=== PATIENT | male | born 1955 | race American Indian/Alaskan Native ===

== ENCOUNTER 2020-09-22 11:51 | Inpatient (IN) | payer OTHER ==
[2020-09-22] MEDS ORDERED: ASPIRIN 81 MG TAB CHEW PO ONE (12:31)
--- NOTE | 2020-09-22 12:35 | Cat Scan Report ---
CT HEAD WITHOUT CONTRAST INDICATION / CLINICAL INFORMATION: MAIN. TECHNIQUE: All CT scans at this location are performed using CT dose reduction for ALARA by means of automated exposure control. COMPARISON: None available. FINDINGS: BRAIN PARENCHYMA: Subtle area of hypoattenuation within the right bhandari radiata/basal ganglia, may r eflect recent infarct. No acute intracranial hemorrhage, mass effect, or midline shift. VENTRICULAR SYSTEM/EXTRA-AXIAL SPACES: Ventricles are normal for age. No extra-axial fluid collection . ORBITS: Normal as visualized. SKELETAL SYSTEM/SOFT TISSUES: Normal bones and soft tissues. PARANASAL SINUSES/MASTOID AIR CELLS: No significant abnormality. ADDITIONAL FINDINGS: None. IMPRESSION: Subtle area of hypoattenuation in the right basal ganglia, may reflect small area of recent ischemia. Recommendation correlation with MRI. No other findings of recent ischemia or acute intracranial hemorrhage. CODE STROKE: Time of Communication (DOCK MANAGER/CDT): 09/22/2020 at 11:30 AM Licensed Practitioner Receiving Report: Dr. Carney Signer Name: Geronimo Horne MD Signed: 09/22/2020 12:30 PM Workstation Name: [id number]
--- NOTE | 2020-09-22 12:36 | Consultation ---
History of Present Illness History of present illness: [facility] Tele[facility]urology [facility] Date of Service: 09/22/2020 11:58:38 Impression: Left-sided weakness Comments/Sign-Out: Patient presenting with left-sided weakness. Suspect lacunar infarct of the right hemispheric deep brain structures - CT findings may be culprit. Metrics: Last Known Well: 09/21/2020 20:00:00 [employer] Notification Time: 09/22/2020 11:58:11 Arrival Time: 09/22/2020 12:09:47 Stamp Time: 09/22/2020 11:58:38 Time First Login Attempt: 09/22/2020 11:58:00 Video Start Time: 09/22/2020 11:58:00 Symptoms: left-sided weakness NIHSS Start Assessment Time: 09/22/2020 12:01:00 Patient is not a candidate for Alteplase/Activase. Patient was not deemed candidate for Alteplase/Activase thrombolytics because of Last Well Known Above 4.5 Hours. Video End Time: 09/22/2020 12:12:00 CT head was reviewed and results were: age indeterminate lacunar infarct of the right BG/bhandari radiata Clinical Presentation is not Suggestive of Large Vessel Occlusive Disease ED Physician notified of diagnostic impression and management plan on 09/22/2020 12:18:00 Our recommendations are outlined below. Recommendations: Activate Stroke Protocol Admission/Order Set Stroke/Telemetry Floor Neuro Checks Bedside Swallow Eval DVT Prophylaxis IV Fluids, Normal Saline Head of Bed 30 Degrees Euglycemia and Avoid Hyperthermia (PRN Acetaminophen) Antiplatelet Therapy Recommended Routine Consultation with Inhouse Neurology for Follow up Care Sign Out: Discussed with Emergency Department Provider History of Present Illness: Patient is a 55 year old Male. Patient was brought by private transportation with symptoms of left-sided weakness Patient with a history of HTN, DM. He was last normal at 2000 last night prior to bed. On waking today the patient noted his left leg was weak and he was having difficulty walking. He denies any sensory loss, vision changes, speech/language changes, MAZA, CP. Examination: BP(205/97), Pulse(91), Blood Glucose(296) 1A: Level of Consciousness - Alert; keenly responsive + 0 1B: Ask Month and Age - Both Questions Right + 0 1C: Blink Eyes & Squeeze Hands - Performs Both Tasks + 0 2: Test Horizontal Extraocular Movements - Normal + 0 3: Test Visual Greco - No Visual Loss + 0 4: Test Facial Palsy (Use Grimace if Obtunded) - Normal symmetry + 0 5A: Test Left Arm Motor Drift - Drift, but doesn't hit bed + 1 5B: Test Right Arm Motor Drift - No Drift for 10 Seconds + 0 6A: Test Left Leg Motor Drift - Drift, but doesn't hit bed + 1 6B: Test Right Leg Motor Drift - No Drift for 5 Seconds + 0 7: Test Limb Ataxia (FNF/Heel-Hernandez) - No Ataxia + 0 8: Test Sensation - Normal; No sensory loss + 0 9: Test Language/Aphasia - Normal; No aphasia + 0 10: Test Dysarthria - Normal + 0 11: Test Extinction/Inattention - No abnormality + 0 NIHSS Score: 2 Pre-Morbid Modified Ranking Scale: 0 Points = No symptoms at all Patient/Family was informed the Neurology Consult would happen via TeleHealth consult by way of interactive audio and video telecommunications and consented to receiving care in this manner. Due to the immediate potential for life-threatening deterioration due to underlying acute neurologic illness, I spent 30 minutes providing critical care. This time includes time for face to face visit via telemedicine, review of medical records, imaging studies and discussion of findings with providers, the patient and/or family. Dr Paresh Atkinson [employer] Case [id number] Medications and Allergies Allergies Allergy/AdvReac Type Severity Reaction Status Date / Time No Known Allergies Allergy Verified 09/22/20 11:54 Home Medications Medication Instructions Recorded Confirmed Last Taken Type Ibuprofen [Motrin] 800 mg PO Q8H PRN #60 tablet 04/19/15 Unknown Rx methOCARBAMOL [Robaxin] 500 mg PO BID #10 tab 04/19/15 Unknown Rx traMADoL [Ultram] 50 mg PO Q6HR PRN #14 tablet 04/19/15 Unknown Rx Physical Examination - Vital Signs Vital Signs: Vital Signs Temp Pulse Resp BP Pulse Ox 98.6 F 91 H 18 205/97 95 09/22/20 11:54 09/22/20 11:54 09/22/20 11:54 09/22/20 11:54 09/22/20 11:54 Results - Laboratory Findings Abnormal Lab Findings: Abnormal Labs 09/22/20 11:56 POC Glucose 296 H
[2020-09-22 13:08] LABS: Basophils % (Auto) 0.7 % (0.0-1.8); Eosinophils % (Auto) 1.4 % (0.0-4.3); Lymphocytes # (Auto) 0.9 K/mm3 (1.2-5.4); Lymphocytes % (Auto) 28.4 % (13.4-35.0); Mean Corpuscular HGB Conc 36 % (32-34); Mean Corpuscular Volume 93 fl (84-94); Monocytes # (Auto) 0.3 K/mm3 (0.0-0.8); Monocytes % (Auto) 9.4 % (0.0-7.3); Platelet Count 181 K/mm3 (140-440); Red Blood Count 4.43 M/mm3 (3.65-5.03); Red Cell Distribution Width 13.2 % (13.2-15.2)
[2020-09-22 13:13] LABS: Hematocrit 40.9 % (35.5-45.6); Hemoglobin 14.7 gm/dl (11.8-15.2)
[2020-09-22 13:15] LABS: Partial Thromboplastin Time 27.6 Sec. (24.2-36.6)
--- NOTE | 2020-09-22 13:27 | Emergency Department Report ---
ED Neuro Deficit HPI - General Chief Complaint: Neuro Symptoms/Deficit Stated Complaint: LEFT SIDE WEAK/LEG NUMB Time Seen by Provider: 09/22/20 12:02 Source: patient Mode of arrival: Wheelchair Limitations: No Limitations - History of Present Illness Initial Comments: Complaint: "My leg was heavy." HPI: This is a 64-year-old male with history of hypertension, diabetes mellitus possible hyperlipidemia who presents with left leg heaviness when he awakened from sleep at 6 AM. He was unable to lift his leg. He was unable to walk for several hours. He called his son to bring him to the emergency department. Leg weakness is improving but still feels heavy. He denies difficulty with speech. He denies upper extremity weakness. No previous history of stroke. He does not receive regular medical care. He does not take any medications for hypertension diabetes mellitus or hyperlipidemia. Possible history of stroke. His father may have had a stroke. There is an extensive family history of hypertension and diabetes mellitus. Patient works as a furnace repair mechanic. He denies tobacco use. -: This morning (Patient awakened with symptoms.) Location: left leg History of same: No Place: home Severity: severe Quality: weak Improves With: time On Anticoagulants: No Context: sudden onset (Waking this morning with left leg heaviness) Associated Symptoms: denies other symptoms Treatments Prior to Arrival: none - Related Data Home Medications: Previous Rx's Medication Instructions Recorded Last Taken Type Ibuprofen [Motrin] 800 mg PO Q8H PRN #60 tablet 04/19/15 Unknown Rx methOCARBAMOL [Robaxin] 500 mg PO BID #10 tab 04/19/15 Unknown Rx traMADoL [Ultram] 50 mg PO Q6HR PRN #14 tablet 04/19/15 Unknown Rx Allergies/Adverse Reactions: Allergies Allergy/AdvReac Type Severity Reaction Status Date / Time No Known Allergies Allergy Verified 09/22/20 11:54 ED Review of Systems ROS: Stated complaint: LEFT SIDE WEAK/LEG NUMB Other details as noted in HPI Comment: All other systems reviewed and negative Constitutional: denies: fever, malaise Respiratory: denies: cough Cardiovascular: denies: chest pain Gastrointestinal: denies: abdominal pain, nausea, vomiting Neurological: weakness. denies: headache, numbness, paresthesias ED Past Medical Hx - Past Medical History Previous Medical History?: Yes Hx Hypertension: Yes Hx Diabetes: Yes - Surgical History Past Surgical History?: No - Family History Family history: hypertension, vascular disease - Social History Smoking Status: Never Smoker Substance Use Type: Alcohol - Medications Home Medications: Home Medications Medication Instructions Recorded Confirmed Last Taken Type Ibuprofen [Motrin] 800 mg PO Q8H PRN #60 tablet 04/19/15 Unknown Rx methOCARBAMOL [Robaxin] 500 mg PO BID #10 tab 04/19/15 Unknown Rx traMADoL [Ultram] 50 mg PO Q6HR PRN #14 tablet 04/19/15 Unknown Rx ED Neuro Physical Exam - General Limitations: No Limitations General appearance: alert, in no apparent distress Suspected Stroke: Yes - Head Head exam: Present: atraumatic, normocephalic - Eye Eye exam: Present: normal appearance - ENT ENT exam: Present: mucous membranes moist - Neck Neck exam: Present: normal inspection, full ROM - Respiratory Respiratory exam: Present: normal lung sounds bilaterally. Absent: respiratory distress, wheezes, rales, rhonchi - Cardiovascular Cardiovascular Exam: Present: regular rate, normal rhythm, normal heart sounds. Absent: systolic murmur, diastolic murmur, rubs, gallop - GI/Abdominal GI/Abdominal exam: Present: soft, normal bowel sounds. Absent: distended, tenderness, guarding, rebound - Rectal Rectal exam: Present: deferred - Extremities Exam Extremities exam: Present: normal inspection - Neurological Exam Neurological exam: Present: alert, oriented X3 - NIHSS Assessment Interval: Baseline 1a. Level of Consciousness: alert/keenly responsive 1b. LOC Questions: answers both correctly 1c. LOC Commands: performs tasks correctly 2. Best Gaze: normal 3. Visual: no visual loss 4. Facial Palsy: normal symmetrical movement 5b. Motor Arm Right: no drift 5a. Motor Arm Left: no drift 6a. Motor Leg Left: drift 6b. Motor Leg Right: no drift 7. Limb Ataxia: absent 8. Sensory: normal 9. Best Language: no aphasia 10. Dysarthria: normal 11. Extinction/Inattention: no abnormality Total Score: 1 Stroke Severity: Minor Stroke - Psychiatric Psychiatric exam: Present: normal affect, normal mood - Skin Skin exam: Present: warm, dry, intact, normal color. Absent: rash ED Course Vital Signs 09/22/20 09/22/20 09/22/20 11:54 12:20 12:30 Temperature 98.6 F Pulse Rate 91 H 89 88 Respiratory 18 21 16 Rate Blood Pressure 205/97 193/96 Blood Pressure [Left] O2 Sat by Pulse 95 96 99 Oximetry 09/22/20 09/22/20 09/22/20 12:32 12:45 13:00 Temperature Pulse Rate 85 87 85 Respiratory 17 18 28 H Rate Blood Pressure 198/99 179/94 Blood Pressure 179/94 [Left] O2 Sat by Pulse 96 97 97 Oximetry 09/22/20 09/22/20 13:15 13:33 Temperature Pulse Rate 89 81 Respiratory 20 Rate Blood Pressure 202/102 192/96 Blood Pressure [Left] O2 Sat by Pulse 96 Oximetry - Lab Data Result diagrams: 09/22/20 12:31 09/22/20 12:31 Lab Results 09/22/20 09/22/20 09/22/20 Range/Units 11:56 12:31 12:31 WBC 3.2 L (4.5-11.0) K/mm3 RBC 4.43 (3.65-5.03) M/mm3 Hgb 14.7 (11.8-15.2) gm/dl Hct 40.9 (35.5-45.6) % MCV 93 (84-94) fl MCH 33 H (28-32) pg MCHC 36 H (32-34) % RDW 13.2 (13.2-15.2) % Plt Count 181 (140-440) K/mm3 Lymph % (Auto) 28.4 (13.4-35.0) % Payne % (Auto) 9.4 H (0.0-7.3) % Eos % (Auto) 1.4 (0.0-4.3) % Baso % (Auto) 0.7 (0.0-1.8) % Lymph # (Auto) 0.9 L (1.2-5.4) K/mm3 Payne # (Auto) 0.3 (0.0-0.8) K/mm3 Eos # (Auto) 0.0 (0.0-0.4) K/mm3 Baso # (Auto) 0.0 (0.0-0.1) K/mm3 Seg Neutrophils % 60.1 (40.0-70.0) % Seg Neutrophils # 1.9 (1.8-7.7) K/mm3 PT 13.0 (12.2-14.9) Sec. INR 1.00 (0.87-1.13) APTT 27.6 (24.2-36.6) Sec. Sodium (137-145) mmol/L Potassium (3.6-5.0) mmol/L Chloride (98-107) mmol/L Carbon Dioxide (22-30) mmol/L Anion Gap mmol/L BUN (9-20) mg/dL Creatinine (0.8-1.3) mg/dL Estimated GFR ml/min BUN/Creatinine Ratio % Glucose (75-100) mg/dL POC Glucose 296 H (70-105) mg/dL Calcium (8.4-10.2) mg/dL Total Bilirubin (0.1-1.2) mg/dL AST (5-40) units/L ALT (7-56) units/L Alkaline Phosphatase (35-129) units/L Troponin T (0.00-0.029) ng/mL Total Protein (6.3-8.2) g/dL Albumin (3.9-5) g/dL Albumin/Globulin Ratio % 09/22/20 09/22/20 Range/Units 12:31 12:31 WBC (4.5-11.0) K/mm3 RBC (3.65-5.03) M/mm3 Hgb (11.8-15.2) gm/dl Hct (35.5-45.6) % MCV (84-94) fl MCH (28-32) pg MCHC (32-34) % RDW (13.2-15.2) % Plt Count (140-440) K/mm3 Lymph % (Auto) (13.4-35.0) % Payne % (Auto) (0.0-7.3) % Eos % (Auto) (0.0-4.3) % Baso % (Auto) (0.0-1.8) % Lymph # (Auto) (1.2-5.4) K/mm3 Payne # (Auto) (0.0-0.8) K/mm3 Eos # (Auto) (0.0-0.4) K/mm3 Baso # (Auto) (0.0-0.1) K/mm3 Seg Neutrophils % (40.0-70.0) % Seg Neutrophils # (1.8-7.7) K/mm3 PT (12.2-14.9) Sec. INR (0.87-1.13) APTT (24.2-36.6) Sec. Sodium 136 L (137-145) mmol/L Potassium 3.8 (3.6-5.0) mmol/L Chloride 99.4 (98-107) mmol/L Carbon Dioxide 27 (22-30) mmol/L Anion Gap 13 mmol/L BUN 15 (9-20) mg/dL Creatinine 1.2 (0.8-1.3) mg/dL Estimated GFR > 60 ml/min BUN/Creatinine Ratio 13 % Glucose 285 H (75-100) mg/dL POC Glucose (70-105) mg/dL Calcium 9.2 (8.4-10.2) mg/dL Total Bilirubin 0.30 (0.1-1.2) mg/dL AST 14 (5-40) units/L ALT 19 (7-56) units/L Alkaline Phosphatase 128 (35-129) units/L Troponin T < 0.010 (0.00-0.029) ng/mL Total Protein 6.9 (6.3-8.2) g/dL Albumin 3.6 L (3.9-5) g/dL Albumin/Globulin Ratio 1.1 % - EKG Data EKG shows normal: sinus rhythm, axis, intervals, QRS complexes, ST-T waves Rate: normal Interpretation: LVH 09/22/20 13:25 EKG obtained 1308 EKG interpreted by wv Normal sinus rhythm rate 80 bpm normal axis normal intervals no ST-T signs of ischemia positive LVH nonischemic T wave pattern - Radiology Data Radiology results: report reviewed, image reviewed CT HEAD WITHOUT CONTRAST INDICATION / CLINICAL INFORMATION: MAIN. TECHNIQUE: All CT scans at this location are performed using CT dose reduction for ALARA by means of automated exposure control. COMPARISON: None available. FINDINGS: BRAIN PARENCHYMA: Subtle area of hypoattenuation within the right bhandari radiata/basal ganglia, may reflect recent infarct. No acute intracranial hemorrhage, mass effect, or midline shift. VENTRICULAR SYSTEM/EXTRA-AXIAL SPACES: Ventricles are normal for age. No extra- axial fluid collection. ORBITS: Normal as visualized. SKELETAL SYSTEM/SOFT TISSUES: Normal bones and soft tissues. PARANASAL SINUSES/MASTOID AIR CELLS: No significant abnormality. ADDITIONAL FINDINGS: None. IMPRESSION: Subtle area of hypoattenuation in the right basal ganglia, may reflect small area of recent ischemia. Recommendation correlation with MRI. No other findings of recent ischemia or acute intracranial hemorrhage. Chest radiograph 1 view my personal interpretation: No pneumothorax no infiltrate normal sinus cardiac silhouette normal mediastinum - Medical Decision Making 1. Acute CVA: CT revealed possible recent infarct at the area of the right basal ganglia, bhandari radiata. CT findings do correspond with patient's symptoms. TPA is not indicated due to rapidly resolving left leg weakness and mild symptoms. Also the time of onset is unknown. Patient received aspirin therapy. 2. Hypertensive urgency: Conservative therapy indicated, IV labetalol given for systolic blood pressure greater than 180 mmHg Admitted to the hospital service for further stroke work-up. Work-up notable for benign neutropenia, normal coagulation parameters chemistry remarkable for random glucose elevation without DKA. Critical care attestation.: If time is entered above; I have spent that time in minutes in the direct care of this critically ill patient, excluding procedure time. ED Disposition Clinical Impression: Acute CVA (cerebrovascular accident) Disposition: OP ADMIT IP TO THIS HOSP Is pt being admited?: Yes Does the pt Need Aspirin: No Condition: Stable
[2020-09-22 13:31] LABS: Alanine Aminotransferase 19 units/L (7-56); Albumin 3.6 g/dL (3.9-5); BUN/Creatinine Ratio 13; Blood Urea Nitrogen 15 mg/dL (9-20); Calcium 9.2 mg/dL (8.4-10.2); Hemolysis Index 6
--- NOTE | 2020-09-22 14:22 | History and Physical Report ---
History of Present Illness Chief complaint: I cant move my leg History of present illness: 64 YO Male with HTN, DM, HLD, PVD presents to ED for evaluation. Patient states that he was in his usual state of health at bedtime at approximately 2100 hrs. Patient states that he awoke from sleep at approximately 0600 hrs. morning and was unable to lift his left leg leg or ambulate. Patient was transported to [facility] via private vehicle for further care and evaluation of the aforementioned symptoms. The patient was seen and evaluated in the emergency department. All lab and imaging studies reviewed. Upon arrival to the emergency department a code stroke was called. The patient was found to have symptoms consistent with CVA. Patient initiated on CVA protocol. Patient placed in observation status and admitted to medical floor for further care and evaluation of the aforementioned symptoms. Patient also found to have hypertensive emergency. Patient denies fever, chills, chest pain, palpitation, productive cough, skin rash, recent ill contacts, or known exposure to COVID-19. No prior admission for review. All medication listed at time of admission has been reconciled. Advanced care planning conducted in ED. Past History Past Medical History: diabetes, hypertension, PVD Past Surgical History: No surgical history, Other (Reviewed) Social history: single. denies: smoking, alcohol abuse, prescription drug abuse Family history: diabetes, hypertension Medications and Allergies Allergies Allergy/AdvReac Type Severity Reaction Status Date / Time No Known Allergies Allergy Verified 09/22/20 11:54 Review of Systems Constitutional: no weight loss, no weight gain, no fever, no chills, no sweats Ears, nose, mouth and throat: no ear pain, no ear discharge, no tinnitis, no n guido congestion, no nasal discharge Cardiovascular: no chest pain, no orthopnea, no palpitations, no rapid/irregular heart beat Respiratory: no cough, no cough with sputum, no hemoptysis, no shortness of breath Gastrointestinal: no abdominal pain, no nausea, no diarrhea, no constipation Genitourinary Male: no hematuria, no discharge, no urinary hesitancy, no nocturia, no incontinence Rectal: no pain, no incontinence Musculoskeletal: no neck pain, no shooting arm pain, no low back pain, no leg numbness/tingling Integumentary: no rash, no pruritis, no redness, no sores, no jaundice Neurological: numbness, lack of coordination, balance difficulties, gait dysfunction, motor disturbance, no head injury, no transient paralysis, no paralysis, no migraines, no convulsions, no aphasia, no change in speech, no change in mentation Psychiatric: no anxiety, no change in sleep habits, no sleep disturbances, no insomnia, no hypersomnia, no change in appetite, no disorientation Endocrine: no cold intolerance, no excessive thirst, no polyuria, no nocturia, no excessive sweating, no weight change Hematologic/Lymphatic: no easy bruising, no easy bleeding, no lymphadenopathy, no lymphedema Allergic/Immunologic: no urticaria, no allergic rhinitis, no wheezing, no persistent infections, no angioedema Exam - Constitutional Vitals: Temp Pulse Resp BP Pulse Ox 98.6 F 81 20 192/96 96 09/22/20 11:54 09/22/20 13:33 09/22/20 13:15 09/22/20 13:33 09/22/20 13:15 General appearance: Present: mild distress - EENT Eyes: Present: PERRL ENT: hearing intact, clear oral mucosa - Neck Neck: Present: supple, normal ROM - Respiratory Respiratory effort: normal Respiratory: bilateral: CTA - Cardiovascular Heart Sounds: Present: S1 & S2. Absent: rub, click - Extremities Extremities: pulses symmetrical, No edema Peripheral Pulses: within normal limits - Abdominal General gastrointestinal: Present: soft, non-tender, non-distended, normal bowel sounds Male genitourinary: Present: normal - Integumentary Integumentary: Present: clear, warm, dry - Musculoskeletal Musculoskeletal: left sided weakness - Psychiatric Psychiatric: appropriate mood/affect, intact judgment & insight, memory intact - Neurologic Neurologic: CNII-XII intact, focal deficits, moves all extremities, no gait normal HEART Score - HEART Score Troponin: Troponin T < 0.010 ng/mL (0.00-0.029) 09/22/20 12:31 Results - Labs CBC & Chem 7: 09/22/20 12:31 09/22/20 12:31 Labs: Abnormal lab results 09/22/20 09/22/20 09/22/20 Range/Units 11:56 12:31 12:31 WBC 3.2 L (4.5-11.0) K/mm3 MCH 33 H (28-32) pg MCHC 36 H (32-34) % Door % (Auto) 9.4 H (0.0-7.3) % Lymph # (Auto) 0.9 L (1.2-5.4) K/mm3 Sodium 136 L (137-145) mmol/L Glucose 285 H (75-100) mg/dL POC Glucose 296 H (70-105) mg/dL Albumin 3.6 L (3.9-5) g/dL Assessment and Plan - Patient Problems (1) Acute CVA (cerebrovascular accident) Current Visit: Yes Status: Acute Plan to address problem: CVA protocol: Teleneurology consulted in ED, CT head, neuro check, seizure precautions, aspiration precautions, physical therapy consulted, Occupational Therapy consulted speech therapy consulted. Antiplatelet therapy, statin therapy. (2) Malignant hypertension Current Visit: Yes Status: Acute Plan to address problem: Monitor blood pressure every shift, have hydralazine 10 mg IV every 6 hours as needed for systolic blood pressure greater than or equal to 185 mmHg. Permissive hypertension overnight. (3) Hyperlipidemia Current Visit: Yes Status: Acute Qualifiers: Hyperlipidemia type: mixed hyperlipidemia Qualified Code(s): E78.2 - Mixed hyperlipidemia Plan to address problem: Statin therapy, lipid panel, supportive care, low-cholesterol diet. (4) Peripheral vascular disease Current Visit: Yes Status: Acute Plan to address problem: Supportive care, outpatient vascular surgery follow-up. (5) DVT prophylaxis Current Visit: Yes Status: Acute Plan to address problem: SCD to bilateral lower extremities while in bed, patient is ambulatory (6) Advance care planning Current Visit: Yes Status: Acute Plan to address problem: Disease education conducted, patient is full code, prognosis discussed, patient care plan discussed, patient acknowledges understanding and agreement with care plan, +30 minutes.
[2020-09-22] MEDS ORDERED: ONDANSETRON 4 MG/2 ML INJ IV PRN (14:23)
[2020-09-22] MEDS ORDERED: PROMETHAZINE 25 MG RECT SUPP PR PRN (14:23)
[2020-09-22] MEDS ORDERED: ACETAMINOPHEN 325 MG TAB PO PRN (14:23)
[2020-09-22] MEDS ORDERED: MAGNESIUM HYDROXIDE (MOM) ORAL LIQD UDC PO PRN (14:23)
[2020-09-22] MEDS ORDERED: METOCLOPRAMIDE 10 MG TAB PO PRN (14:23)
[2020-09-22] MEDS ORDERED: traMADol 50 MG TAB PO PRN (14:24)
[2020-09-22] MEDS ORDERED: hydrALAZINE 20 MG/1 ML INJ IV PRN (14:25)
--- NOTE | 2020-09-22 14:27 | XRay Report ---
. XR chest 1V ap INDICATION / CLINICAL INFORMATION: stroke. COMPARISON: None FINDINGS: SUPPORT DEVICES: None. HEART /PULMONARY VASCULATURE: No significant abnormality. LUNGS / PLEURA: No significant pulmonary or pleural abnormality. No pneumothorax. ADDITIONAL FINDINGS: No significant additional findings. IMPRESSION: 1. No acute findings. Signer Name: Geronimo Horne MD Signed: 09/22/2020 2:22 PM Workstation Name: [id number]
[2020-09-22 17:06] LABS: Chol/HDL Ratio 4.4 %
[2020-09-22 17:40] LABS: Bilirubin,Urine NEG (Negative); Blood,Urine SM (Negative); Color,Urine Straw (Yellow); Urobilinogen,Urine < 2.0 mg/dL (<2.0); WBC,Urine < 1.0 /HPF (0.0-6.0)
[2020-09-22 17:50] LABS: Amphetamine Screen,Urine Negative; Benzodiazepines Screen,Urine Negative; Cannabinoid Screen,Urine Negative; Cocaine Screen,Urine Negative; Methadone Screen,Urine Negative; Opiate Screen,Urine Negative
[2020-09-23] MEDS: ASPIRIN 325 MG TAB PO SCH (09:12)
[2020-09-23] MEDS: CLOPIDOGREL 75 MG TAB PO SCH (09:12)
--- NOTE | 2020-09-23 15:07 | Progress Note ---
Assessment and Plan - Patient Problems (1) Acute CVA (cerebrovascular accident) Current Visit: Yes Status: Acute Plan to address problem: Left hemiplegia Left upper extremity weakness improved MRI pending Telemetry neurology consult appreciated (2) Hyperlipidemia Current Visit: Yes Status: Acute Qualifiers: Hyperlipidemia type: mixed hyperlipidemia Qualified Code(s): E78.2 - Mixed hyperlipidemia (3) Malignant hypertension Current Visit: Yes Status: Acute Plan to address problem: Blood pressure medications initiated (4) Hyponatremia Current Visit: Yes Status: Acute Plan to address problem: Mild should correct with IV fluids (5) T2DM (type 2 diabetes mellitus) Current Visit: Yes Status: Chronic Qualifiers: Diabetes mellitus halfway insulin use: unspecified halfway insulin use status Plan to address problem: Patient started on Metformin and glimepiride (6) DVT prophylaxis Current Visit: Yes Status: Acute Plan to address problem: Heparin and GI prophylaxis Subjective Date of service: 09/23/20 Principal diagnosis: Acute CVA with left-sided weakness Interval history: 64-year-old male presents with left upper extremity and left lower extremity weakness of 1 day duration. Code stroke was called. Patient has more weakness in the left lower extremity. Patient also was found to have high blood press ure. Patient does not take medications for his blood pressure properly. No exposure to coronavirus. 09/23/2020 Patient says his left upper extremity weakness is improved Patient continues to have weakness in the left lower extremity but able to walk with a walker MRI pending Objective - Constitutional Vitals: Vital Signs - 12hr 09/23/20 09/23/20 09/23/20 04:00 05:06 07:26 Temperature 98.0 F 98.6 F Pulse Rate 72 72 70 Respiratory 18 18 Rate Blood Pressure 148/80 124/70 O2 Sat by Pulse 97 96 Oximetry 09/23/20 09/23/20 09/23/20 10:00 11:49 12:00 Temperature 98.6 F Pulse Rate 75 70 Respiratory 18 18 Rate Blood Pressure 171/82 O2 Sat by Pulse 99 99 Oximetry 09/23/20 13:18 Temperature Pulse Rate Respiratory Rate Blood Pressure O2 Sat by Pulse 98 Oximetry General appearance: Present: no acute distress, well-nourished - EENT Eyes: PERRL, EOM intact ENT: hearing intact, clear oral mucosa Ears: bilateral: normal - Neck Neck: supple, normal ROM - Respiratory Respiratory effort: normal Respiratory: bilateral: CTA - Breasts Breasts: normal - Cardiovascular Heart rate: 78 Rhythm: regular Heart Sounds: Present: S1 & S2. Absent: gallop, rub Extremities: pulses intact, No edema, normal color, Full ROM - Gastrointestinal General gastrointestinal: Present: soft, non-tender, non-distended, normal bowel sounds Rectal Exam: deferred - Genitourinary Male genitourinary: normal - Integumentary Integumentary: clear, warm, dry - Musculoskeletal Musculoskeletal: left sided weakness - Neurologic Neurologic: moves all extremities - Psychiatric Psychiatric: appropriate mood/affect, intact judgment & insight, memory intact, other (Left lower extremity weakness present.) - Allied health notes Allied health notes reviewed: nursing, case management - Labs CBC & Chem 7: 09/24/20 07:13 09/24/20 07:13 Labs: Abnormal lab results 09/22/20 Range/Units 14:42 Triglycerides 194 H (2-149) mg/dL HEART Score - HEART Score Troponin: Troponin T < 0.010 ng/mL (0.00-0.029) 09/22/20 12:31
[2020-09-24 07:54] LABS: Basophils % (Auto) 0.4 % (0.0-1.8); Eosinophils # (Auto) 0.1 K/mm3 (0.0-0.4); Eosinophils % (Auto) 2.4 % (0.0-4.3); Lymphocytes # (Auto) 1.1 K/mm3 (1.2-5.4); Lymphocytes % (Auto) 34.4 % (13.4-35.0); Mean Corpuscular HGB Conc 36 % (32-34); Mean Corpuscular Volume 92 fl (84-94); Monocytes # (Auto) 0.3 K/mm3 (0.0-0.8); Monocytes % (Auto) 10.5 % (0.0-7.3); Platelet Count 186 K/mm3 (140-440); Red Blood Count 4.58 M/mm3 (3.65-5.03); Red Cell Distribution Width 13.4 % (13.2-15.2)
[2020-09-24 07:58] LABS: Hematocrit 42.2 % (35.5-45.6); Hemoglobin 15.2 gm/dl (11.8-15.2)
[2020-09-24 08:22] LABS: Alanine Aminotransferase 17 units/L (7-56); Albumin 3.4 g/dL (3.9-5); BUN/Creatinine Ratio 15; Blood Urea Nitrogen 12 mg/dL (9-20); Calcium 9.3 mg/dL (8.4-10.2); Hemolysis Index 13
[2020-09-24] MEDS: ASPIRIN 325 MG TAB PO SCH (10:35)
[2020-09-24] MEDS: CLOPIDOGREL 75 MG TAB PO SCH (10:36)
--- NOTE | 2020-09-24 13:31 | Progress Note ---
Assessment and Plan - Patient Problems (1) Acute CVA (cerebrovascular accident) Current Visit: Yes Status: Acute Plan to address problem: Left hemiplegia Left upper extremity weakness improved MRI pending Telemetry neurology consult appreciated (2) Malignant hypertension Current Visit: Yes Status: Acute Plan to address problem: Blood pressure medications initiated (3) Hyperlipidemia Current Visit: Yes Status: Acute Qualifiers: Hyperlipidemia type: mixed hyperlipidemia Qualified Code(s): E78.2 - Mixed hyperlipidemia Plan to address problem: Patient on statins (4) Hyponatremia Current Visit: Yes Status: Acute Plan to address problem: Mild should correct with IV fluids (5) DVT prophylaxis Current Visit: Yes Status: Acute Plan to address problem: Heparin and GI prophylaxis Subjective Date of service: 09/24/20 Principal diagnosis: Left upper extremity and left lower extremity weakness consistent with CVA Interval history: Subjective Date of service: 09/24/20 Principal diagnosis: Acute CVA with left-sided weakness Interval history: 64-year-old male presents with left upper extremity and left lower extremity weakness of 1 day duration. Code stroke was called. Patient has more weakness in the left lower extremity. Patient also was found to have high blood pressure. Patient does not take medications for his blood pressure properly. No exposure to coronavirus. 09/23/2020 Patient says his left upper extremity weakness is improved Patient continues to have weakness in the left lower extremity but able to walk with a walker MRI pending 09/24/2020 Patient is much improved in the left upper extremity No dysarthria Power is 3/5 in the left lower extremity Able to walk with a walker Objective - Constitutional Vitals: Vital Signs - 12hr 09/24/20 09/24/20 03:13 04:44 Temperature 97.8 F Pulse Rate 73 68 Respiratory 20 Rate Blood Pressure 140/78 O2 Sat by Pulse 98 Oximetry General appearance: Present: no acute distress, well-nourished - EENT Eyes: PERRL, EOM intact ENT: hearing intact, clear oral mucosa Ears: bilateral: normal - Neck Neck: supple, normal ROM - Respiratory Respiratory effort: normal Respiratory: bilateral: CTA - Breasts Breasts: normal - Cardiovascular Heart rate: 78 Rhythm: regular Heart Sounds: Present: S1 & S2. Absent: gallop, rub Extremities: no ischemia, pulses intact, No edema, normal color, Full ROM - Gastrointestinal General gastrointestinal: Present: soft, non-tender, non-distended, normal bowel sounds - Genitourinary Male genitourinary: normal - Integumentary Integumentary: clear, warm, dry - Musculoskeletal Musculoskeletal: left sided weakness (3/5 power in left lower extremity, 5/5 power in left upper extremity) - Neurologic Neurologic: moves all extremities - Psychiatric Psychiatric: memory intact, appropriate mood/affect, intact judgment & insight - Labs CBC & Chem 7: 09/24/20 07:13 09/24/20 07:13 Labs: Abnormal lab results 09/24/20 09/24/20 09/24/20 Range/Units 07:13 07:13 11:40 WBC 3.2 L (4.5-11.0) K/mm3 MCH 33 H (28-32) pg MCHC 36 H (32-34) % Nicholas % (Auto) 10.5 H (0.0-7.3) % Lymph # (Auto) 1.1 L (1.2-5.4) K/mm3 Seg Neutrophils # 1.7 L (1.8-7.7) K/mm3 Sodium 136 L (137-145) mmol/L Glucose 210 H (75-100) mg/dL POC Glucose 281 H (70-105) mg/dL Alkaline Phosphatase 131 H (35-129) units/L Albumin 3.4 L (3.9-5) g/dL HEART Score - HEART Score Troponin: Troponin T < 0.010 ng/mL (0.00-0.029) 09/22/20 12:31
[2020-09-25] MEDS: CLOPIDOGREL 75 MG TAB PO SCH (09:17)
[2020-09-25] MEDS: ASPIRIN 325 MG TAB PO SCH (09:17)
--- NOTE | 2020-09-25 17:09 | Progress Note ---
Assessment and Plan - Patient Problems (1) Acute CVA (cerebrovascular accident) Current Visit: Yes Status: Acute Plan to address problem: Left hemiplegia Left upper extremity weakness improved MRI pending Telemetry neurology consult appreciated Dual oral anticoagulation initiated (2) Hyperlipidemia Current Visit: Yes Status: Acute Qualifiers: Hyperlipidemia type: mixed hyperlipidemia Qualified Code(s): E78.2 - Mixed hyperlipidemia Plan to address problem: Patient on statins (3) Malignant hypertension Current Visit: Yes Status: Acute Plan to address problem: Blood pressure medications initiated (4) DVT prophylaxis Current Visit: Yes Status: Acute Plan to address problem: Heparin and GI prophylaxis Subjective Date of service: 09/25/20 Principal diagnosis: Acute CVA with left-sided weakness Interval history: Subjective Date of service: 09/24/20 Principal diagnosis: Acute CVA with left-sided weakness Interval history: 64-year-old male presents with left upper extremity and left lower extremity weakness of 1 day duration. Code stroke was called. Patient has more weakness in the left lower extremity. Patient also was found to have high blood pressure. Patient does not take medications for his blood pressure properly. No exposure to coronavirus. 09/23/2020 Patient says his left upper extremity weakness is improved Patient continues to have weakness in the left lower extremity but able to walk with a walker MRI pending 09/24/2020 Patient is much improved in the left upper extremity No dysarthria Power is 3/5 in the left lower extremity Able to walk with a walker 09/25/2020 Patient beaking left lower extremity undergoing physical therapy Talked with his significant other who said she can take care of him at home with home physical therapy Apparently she is a nurse and wants to do physical therapy. Objective - Constitutional Vitals: Vital Signs - 12hr 09/25/20 09/25/20 07:50 10:00 Temperature 97.9 F Pulse Rate 71 70 Respiratory 20 Rate Blood Pressure 163/83 O2 Sat by Pulse 95 95 Oximetry General appearance: Present: no acute distress, well-nourished - EENT Eyes: PERRL, EOM intact ENT: hearing intact, clear oral mucosa Ears: bilateral: normal - Neck Neck: supple, normal ROM - Respiratory Respiratory effort: normal Respiratory: bilateral: CTA - Breasts Breasts: normal - Cardiovascular Heart rate: 78 Rhythm: regular Heart Sounds: Present: S1 & S2. Absent: gallop, rub Extremities: pulses intact, No edema, normal color, Full ROM - Gastrointestinal General gastrointestinal: Present: soft, non-tender, non-distended, normal bowel sounds - Genitourinary Male genitourinary: normal - Integumentary Integumentary: clear, warm, dry - Musculoskeletal Musculoskeletal: left sided weakness (3/5 power in left lower extremity, 5/5 power in the left upper extremity) - Neurologic Neurologic: focal deficits (Left hemiplegia with 3/5 power in left lower extremity), moves all extremities - Psychiatric Psychiatric: memory intact, appropriate mood/affect, intact judgment & insight - Allied health notes Allied health notes reviewed: nursing, case management - Labs CBC & Chem 7: 09/24/20 07:13 09/24/20 07:13 Labs: Abnormal lab results 09/24/20 Range/Units 20:54 POC Glucose 302 H (70-105) mg/dL HEART Score - HEART Score Troponin: Troponin T < 0.010 ng/mL (0.00-0.029) 09/22/20 12:31
--- NOTE | 2020-09-25 18:26 | Vascular Lab Report ---
"DUPLEX DOPPLER ULTRASOUND CAROTID, BILATERAL INDICATION: stroke. FINDINGS: RIGHT CAROTID: Mild atherosclerotic plaque. Right ICA peak systolic velocity: 82 cm/sec. Right Vertebral Artery: Antegrade flow. LEFT CAROTID: Small amount of calcified atherosclerotic plaque. Left ICA peak systolic velocity: 86 cm/sec. Left Vertebral Artery: Antegrade flow. IMPRESSION: 1. Right Internal Carotid Artery: Less than 50% diameter stenosis. 2. Left Internal Carotid Artery: Less than 50% diameter stenosis. Velocity criteria are extrapolated from diameter data as defined by the Society of Radiologists in Ul trasound Consensus Conference, Radiology 2003; 229;340-346. Degree of Stenosis (%) || ICA PSV (cm/sec) || Plaque estimate (%) || ICA/CCA PSV Ratio Normal <125 None <2.0 <50 <125 <50 <2.0 50-69 125-230 50 2.0-4.0 70 but less than 100 >230 50 >4.0 Near occlusion High, low, or none visible variable Total occlusion None visible; no lumen N/A Signer Name: Baltazar Leroy MD Signed: 09/25/2020 6:22 PM Workstation Name: [id number]"
[2020-09-25] MEDS: INSULIN LISPRO 100 UNIT/ML VIAL 3 mL SUB-Q SCH (22:00)
[2020-09-26] MEDS: INSULIN LISPRO 100 UNIT/ML VIAL 3 mL SUB-Q SCH ×4 (08:26→22:05)
[2020-09-26] MEDS: ASPIRIN 325 MG TAB PO SCH (10:44)
[2020-09-26] MEDS: CLOPIDOGREL 75 MG TAB PO SCH (10:44)
--- NOTE | 2020-09-26 23:58 | Progress Note ---
Assessment and Plan - Patient Problems (1) Acute CVA (cerebrovascular accident) Current Visit: Yes Status: Acute Plan to address problem: Left hemiplegia Left upper extremity weakness improved MRI pending Telemetry neurology consult appreciated Dual oral anticoagulation initiated (2) Hyperlipidemia Current Visit: Yes Status: Acute Qualifiers: Hyperlipidemia type: mixed hyperlipidemia Qualified Code(s): E78.2 - Mixed hyperlipidemia Plan to address problem: Patient on statins (3) Malignant hypertension Current Visit: Yes Status: Acute Plan to address problem: Blood pressure medications initiated (4) T2DM (type 2 diabetes mellitus) Current Visit: Yes Status: Chronic Qualifiers: Diabetes mellitus fdc insulin use: unspecified vermin exterminator insulin use status Plan to address problem: Patient started on Metformin and glimepiride (5) DVT prophylaxis Current Visit: Yes Status: Acute Plan to address problem: Heparin and GI prophylaxis Subjective Date of service: 09/26/20 Principal diagnosis: Acute CVA with left-sided weakness Interval history: Subjective Date of service: 09/24/20 Principal diagnosis: Acute CVA with left-sided weakness Interval history: 64-year-old male presents with left upper extremity and left lower extremity weakness of 1 day duration. Code stroke was called. Patient has more weakness in the left lower extremity. Patient also was found to have high blood p ressure. Patient does not take medications for his blood pressure properly. No exposure to coronavirus. 09/23/2020 Patient says his left upper extremity weakness is improved Patient continues to have weakness in the left lower extremity but able to walk with a walker MRI pending 09/24/2020 Patient is much improved in the left upper extremity No dysarthria Power is 3/5 in the left lower extremity Able to walk with a walker 09/25/2020 Patient beaking left lower extremity undergoing physical therapy Talked with his significant other who said she can take care of him at home with home physical therapy Apparently she is a nurse and wants to do physical therapy. Objective - Constitutional Vitals: Vital Signs - 12hr 09/26/20 09/26/20 09/26/20 12:20 18:00 19:39 Temperature 98.1 F 98.0 F Pulse Rate 78 66 89 Respiratory 18 16 Rate Blood Pressure 149/88 132/82 O2 Sat by Pulse 95 99 Oximetry 09/26/20 23:08 Temperature 98.1 F Pulse Rate 76 Respiratory 16 Rate Blood Pressure 174/88 O2 Sat by Pulse 97 Oximetry General appearance: Present: no acute distress, well-nourished - EENT Eyes: PERRL, EOM intact ENT: hearing intact, clear oral mucosa Ears: bilateral: normal - Neck Neck: supple, normal ROM - Respiratory Respiratory effort: normal Respiratory: bilateral: CTA - Breasts Breasts: normal - Cardiovascular Heart rate: 78 Rhythm: regular Heart Sounds: Present: S1 & S2. Absent: gallop, rub Extremities: no ischemia, pulses intact, No edema, normal color, Full ROM - Gastrointestinal General gastrointestinal: Present: soft, non-tender, non-distended, normal bowel sounds - Genitourinary Male genitourinary: normal - Integumentary Integumentary: clear, warm, dry - Musculoskeletal Musculoskeletal: left sided weakness (Left lower extremity 3/5 power but improving) - Neurologic Neurologic: focal deficits (Left upper extremity normal left lower extremity 3/5 power), moves all extremities - Psychiatric Psychiatric: memory intact, appropriate mood/affect, intact judgment & insight - Labs CBC & Chem 7: 09/24/20 07:13 09/24/20 07:13 Labs: Abnormal lab results 09/26/20 09/26/20 09/26/20 Range/Units 08:08 12:17 15:47 POC Glucose 199 H 202 H 251 H (70-105) mg/dL 09/26/20 Range/Units 22:00 POC Glucose 299 H (70-105) mg/dL HEART Score - HEART Score Troponin: Troponin T < 0.010 ng/mL (0.00-0.029) 09/22/20 12:31
[2020-09-27] MEDS: INSULIN LISPRO 100 UNIT/ML VIAL 3 mL SUB-Q SCH ×3 (08:19→16:29)
[2020-09-27 09:44] VITALS: BP 136/76
[2020-09-27] MEDS: ASPIRIN 325 MG TAB PO SCH (09:48)
[2020-09-27] MEDS: CLOPIDOGREL 75 MG TAB PO SCH (09:48)
--- NOTE | 2020-09-27 14:43 | Discharge Summary ---
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 Code stroke was called. Patient has more weakness in the left lower extremity. Patient also was found to have high blood pressure. Patient does not take medications for his blood pressure properly. No exposure to coronavirus. 09/23/2020 Patient says his left upper extremity weakness is improved Patient continues to have weakness in the left lower extremity but able to walk with a walker MRI pending 09/24/2020 Patient is much improved in the left upper extremity No dysarthria Power is 3/5 in the left lower extremity Able to walk with a walker 09/25/2020 Patient beaking left lower extremity undergoing physical therapy Talked with his significant other who said she can take care of him at home with home physical therapy Apparently she is a nurse and wants to do physical therapy. 09/26/2020 Patient improving Patient's significant other wants to take care of him Significant other is a nurse No need for home health. 09/27/2020 Patient being discharged on antihypertensives dual oral anticoagulants and Metformin/glimepiride Follow-up with [facility]/primary care (1) Acute CVA (cerebrovascular accident) Current Visit: Yes Status: Acute Plan to address problem: Left hemiplegia Left upper extremity weakness improved MRI pending Telemetry neurology consult appreciated Dual oral anticoagulation initiated (2) Hyperlipidemia Current Visit: Yes Status: Acute Qualifiers: Hyperlipidemia type: mixed hyperlipidemia Qualified Code(s): E78.2 - Mixed hyperlipidemia Plan to address problem: Patient on statins (3) Malignant hypertension Current Visit: Yes Status: Acute Plan to address problem: Blood pressure medications initiated (4) T2DM (type 2 diabetes mellitus) Current Visit: Yes Status: Chronic Qualifiers: Diabetes mellitus usp insulin use: unspecified usp insulin use status Plan to address problem: Patient started on Metformin and glimepiride (5) DVT prophylaxis Current Visit: Yes Status: Acute Plan to address problem: Heparin and GI prophylaxis Subjective Date of service: 09/26/20 Principal diagnosis: Acute CVA with left-sided weakness Interval history: Disposition: TO HOME OR SELFCARE - Discharge Diagnoses (1) Acute CVA (cerebrovascular accident) Status: Acute (2) Hyperlipidemia Status: Acute Qualifiers: Hyperlipidemia type: mixed hyperlipidemia Qualified Code(s): E78.2 - Mixed hyperlipidemia (3) Malignant hypertension Status: Acute (4) T2DM (type 2 diabetes mellitus) Status: Chronic Qualifiers: 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 (5) DVT prophylaxis Status: Acute Core Measure Documentation - Palliative Care Palliative Care/ Comfort Measures: Not Applicable - Core Measures Any of the following diagnoses?: none Exam - Constitutional Vitals: Temp Pulse Resp BP Pulse Ox 98.5 F 75 18 136/76 98 09/27/20 09:40 09/27/20 11:13 09/27/20 09:40 09/27/20 09:40 09/27/20 09:40 General appearance: Present: no acute distress, well-nourished - EENT Eyes: Present: PERRL ENT: hearing intact, clear oral mucosa - Neck Neck: Present: supple, normal ROM - Respiratory Respiratory effort: normal Respiratory: bilateral: CTA - Cardiovascular Heart rate: 78 Rhythm: regular Heart Sounds: Present: S1 & S2. Absent: rub, click - Extremities Extremities: pulses symmetrical, No edema Peripheral Pulses: within normal limits - Abdominal General gastrointestinal: Present: soft, non-tender, non-distended, normal bowel sounds Male genitourinary: Present: normal - Rectal Rectal Exam: deferred - Integumentary Integumentary: Present: clear, warm, dry - Musculoskeletal Musculoskeletal: left sided weakness - Psychiatric Psychiatric: appropriate mood/affect, intact judgment & insight - Neurologic Neurologic: CNII-XII intact, focal deficits (Left lower extremity weakness 3/5 power), moves all extremities - Allied Health Allied health notes reviewed: nursing, case management Plan Activity: no restrictions Diet: low salt, diabetic Follow up with: LAUREN JORGE MD [Primary Care Provider] - 7 Days DOROTHY ARTHUR MD [Staff Physician] - 7 Days
[2020-09-27] MEDS ORDERED: GLIMEPIRIDE 2 MG TAB PO SCH (15:00)
[2020-09-27] MEDS ORDERED: VALSARTAN 40 MG TAB PO SCH (15:00)
[2020-09-27] MEDS ORDERED: metFORMIN 500 MG TAB PO SCH (17:00)
== END 2020-09-27 16:39 | disposition home health service (06) | DRG 65 ==
LOC: ED 11:51 → OBSVTOIN 14:23 → 4A 14:23
PROVIDERS: ADMIT Internal Medicine; ATTEND Internal Medicine
DX: I63.9 Cerebral infarction, unspecified (principal); G81.94 Hemiplegia, unspecified affecting left nondominant side; I16.1 Hypertensive emergency; E87.1 Hypo-osmolality and hyponatremia; I10 Essential (primary) hypertension; R29.702 NIHSS score 2; Z82.49 Family history of ischemic heart disease and other diseases of the circulatory system; E11.51 Type 2 diabetes mellitus with diabetic peripheral angiopathy without gangrene; E78.2 Mixed hyperlipidemia
CPT/HCPCS: 36415; 70450; 71045; 80053; 80061; 80307; 81001; 82962; 84484; 85025; 85610; 85730; 90471; 93005; 93306; 93880; 96365; 96375; 96376; G0378; A9270-GY